=== PATIENT | female | born 1940 | race Caucasian/White ===

== ENCOUNTER 2016-12-14 13:06 | Outpatient (CLI) ==
[2014-01-25 22:34] VITALS: BMI 15.4
[2016-12-14 13:26] LABS: HEMATOCRIT 32.5 % (37.0-47.0); HEMOGLOBIN 10.2 g/dl (12.0-16.0); MEAN CORPUSCULAR HEMOGLOBIN 30.2 pg (27.0-31.0); MEAN CORPUSCULAR HGB CONC 31.4 (31.8-35.4); MEAN CORPUSCULAR VOLUME 96.2 fl (81.0-99.0); RED BLOOD COUNT 3.38 10^6/ul (4.20-5.40); WHITE BLOOD COUNT 7.94 K/ul (4.6-10.2)
[2016-12-14 13:49] LABS: PROTHROMBIN TIME 10.1 SEC (9.3-11.0)
[2016-12-14 14:09] LABS: ALBUMIN 3.8 g/dL (3.4-5.0); ALBUMIN/GLOBULIN RATIO 1.12; ANION GAP 15.9; BILIRUBIN,TOTAL 0.3 mg/dL (0.00-1.20); BUN/CREATININE RATIO 19.19; CALCIUM 9.8 mg/dL (8.2-10.2); CREATININE 0.99 mg/dL (0.60-1.30); POTASSIUM 4.9 mmol/L (3.5-5.10); TOTAL PROTEIN 7.2 g/dL (5.8-8.1)
[2016-12-14 19:02] LABS: CHOL/HDL RATIO 2.2 (4.5-5.5)
== END 2016-12-14 13:07 | disposition home or self-care (01) ==
LOC: NONPT 13:06
PROVIDERS: ATTEND Internal Medicine
DX: I48.91 Unspecified atrial fibrillation (principal); E78.5 Hyperlipidemia, unspecified; E55.9 Vitamin D deficiency, unspecified; Z51.81 Encounter for therapeutic drug level monitoring; Z79.899 Other long term (current) drug therapy
CPT/HCPCS: 80053; 80061; 84443; 85025; 85027; 85610

== ENCOUNTER 2017-01-13 14:42 | Outpatient (CLI) ==
[2014-01-25 22:34] VITALS: BMI 15.4
[2017-01-13 14:48] LABS: BILIRUBIN,URINE Negative (NEGATIVE); KETONES,URINE Negative (NEGATIVE); LEUKOCYTE ESTERASE ,URINE 1+ (NEGATIVE); NITRITE,URINE Negative (NEGATIVE); PH,URINE 5.5 (5-9); PROTEIN,URINE Negative (NEGATIVE); URINE, BLOOD Negative (NEGATIVE)
[2017-01-13 14:53] LABS: ADD URINE MICROSCOPIC YES
[2017-01-13 14:55] LABS: BACTERIA,URINE TRACE (NOT PRESENT)
== END 2017-01-13 14:43 | disposition home or self-care (01) ==
LOC: NONPT 14:42
PROVIDERS: ATTEND Internal Medicine
DX: M62.81 Muscle weakness (generalized) (principal)
CPT/HCPCS: 81001; 87086

== ENCOUNTER 2017-01-17 13:28 | Outpatient (CLI) ==
[2014-01-25 22:34] VITALS: BMI 15.4
== END 2017-01-17 13:29 | disposition home or self-care (01) ==
LOC: NONPT 13:28
PROVIDERS: ATTEND Internal Medicine
DX: E03.9 Hypothyroidism, unspecified (principal)
CPT/HCPCS: 84443

== ENCOUNTER 2017-02-18 11:25 | Outpatient (CLI) ==
[2014-01-25 22:34] VITALS: BMI 15.4
[2017-02-18 11:55] LABS: PROTHROMBIN TIME 20.4 SEC (9.3-11.0)
== END 2017-02-18 11:26 | disposition home or self-care (01) ==
LOC: NONPT 11:25
PROVIDERS: ATTEND Internal Medicine
DX: Z51.81 Encounter for therapeutic drug level monitoring (principal); Z79.01 Long term (current) use of anticoagulants; I48.91 Unspecified atrial fibrillation; I10 Essential (primary) hypertension; M62.81 Muscle weakness (generalized); Z91.81 History of falling
CPT/HCPCS: 84443; 85610

== ENCOUNTER 2017-03-10 13:56 | Outpatient (CLI) ==
[2014-01-25 22:34] VITALS: BMI 15.4
[2017-03-10 14:36] LABS: PROTHROMBIN TIME 10.5 SEC (9.3-11.0)
== END 2017-03-10 13:57 | disposition home or self-care (01) ==
LOC: NONPT 13:56
PROVIDERS: ATTEND Internal Medicine
DX: Z51.81 Encounter for therapeutic drug level monitoring (principal); Z79.01 Long term (current) use of anticoagulants
CPT/HCPCS: 85610

== ENCOUNTER 2017-03-24 06:11 | Outpatient (CLI) ==
[2014-01-25 22:34] VITALS: BMI 15.4
== END 2017-03-24 06:12 | disposition short-term general hospital (02) ==
LOC: AMBL 06:11
PROVIDERS: ATTEND Internal Medicine Geriatric Medicine
DX: R52 Pain, unspecified (principal); R06.02 Shortness of breath; J44.9 Chronic obstructive pulmonary disease, unspecified; M81.0 Age-related osteoporosis without current pathological fracture; J43.9 Emphysema, unspecified

== ENCOUNTER 2017-04-30 12:45 | Outpatient (CLI) ==
[2014-01-25 22:34] VITALS: BMI 15.4
[2017-04-30 13:45] LABS: PROTHROMBIN TIME 133.1 SEC (9.3-11.0)
== END 2017-04-30 12:46 | disposition home or self-care (01) ==
LOC: NONPT 12:45
PROVIDERS: ATTEND Internal Medicine
DX: Z51.81 Encounter for therapeutic drug level monitoring (principal); Z79.01 Long term (current) use of anticoagulants
CPT/HCPCS: 85610

== ENCOUNTER 2017-04-30 14:29 | Outpatient (CLI) ==
[2014-01-25 22:34] VITALS: BMI 15.4
== END 2017-04-30 15:10 | disposition short-term general hospital (02) ==
LOC: AMBL 14:29
DX: R53.1 Weakness (principal); R79.1 Abnormal coagulation profile

== ENCOUNTER 2017-05-01 11:41 | Outpatient (CLI) ==
[2014-01-25 22:34] VITALS: BMI 15.4
[2017-05-01 12:52] LABS: PROTHROMBIN TIME 102.2 SEC (9.3-11.0)
== END 2017-05-01 11:42 | disposition home or self-care (01) ==
LOC: NONPT 11:41
PROVIDERS: ATTEND Internal Medicine
DX: Z51.81 Encounter for therapeutic drug level monitoring (principal); Z79.01 Long term (current) use of anticoagulants
CPT/HCPCS: 85610

== ENCOUNTER 2017-06-20 10:00 | Outpatient (CLI) ==
[2014-01-25 22:34] VITALS: BMI 15.4
== END 2017-06-20 10:01 | disposition hospice, inpatient (51) ==
LOC: AMBL 10:00
PROVIDERS: ATTEND Internal Medicine
DX: R62.7 Adult failure to thrive (principal); M54.6 Pain in thoracic spine; Z99.81 Dependence on supplemental oxygen